=== PATIENT | female | born 2000 | race Caucasian/White ===

== ENCOUNTER → 2020-12-14 | Outpatient (REF) | payer OTHER ==
[2020-12-14 18:03] LABS: HCG, SERUM QUALITATIVE POSITIVE (NEGATIVE)
[2020-12-14 18:14] LABS: HCG, SERUM QUANTITATIVE 56116 MIU/ML
== END ==
LOC: M LAB REF 16:21
PROVIDERS: ATTEND Physician Assistant Medical
DX: Z32.00 Encounter for pregnancy test, result unknown (principal)

== ENCOUNTER 2021-08-05 13:54 | Outpatient (CLI) | payer OTHER ==
[~2021-08-05] VITALS: Ht 165.1 cm; Wt 77.2 kg
[2021-08-05 14:14] VITALS: BP 124/62
[2021-08-05] MEDS ORDERED: ALBU8.5H INH (14:21)
[2021-08-05] MEDS ORDERED: PRENTAB9 PO (14:21)
[2021-08-05] MEDS ORDERED: FERR325T3 PO (14:21)
[2021-08-05] MEDS ORDERED: COLA100C5 PO (14:21)
[2021-08-05] MEDS ORDERED: HOME MED LIST COMPLETE! XX SCH (14:25)
--- NOTE | 2021-08-05 14:51 | IPNPDOC ---
Text Note Date of Service The patient was seen on 08/05/21. NOTE Chief Complaint: Ms. Helton is a 21 year old at 40+1 weeks gestation presenting to L&D triage for complaints of decreased movements. Patient presents: with spouse HPI: Reports usually has excellent movement every morning and night. Loiza some movement last night, but not as vigerous as normal. She did not get her kick counts met this am. Denies any leaking of fluid, vaginal bleeding. Reporting good movement. Some irregular cramping. Denies any headaches, nausea, vomiting, RUQ pain. Denies any dysuria, vaginal discharge, vaginal itching/burning. Objective: General: Alert. Well-appearing, in no acute distress PSYCH: Well groomed. Appropriate affect, normal mood. Conversed easily. Neuro: Oriented to time, place, and person. RESP: Unlabored breathing. CV: NO cyanosis. No edema to bilateral upper and lower extremities. ABD: Soft, non-tender. MSK: legs without edema bilaterally. Normal mvmt all extremities. Steady gait. Kalee from a seated position without assistance. Obstetrical: FHR: 135 with moderate variability, accels noted. NO decels. Irregular contractions. VTX by TAUS Limited Trans-Abdominal Ultrasound Performed Today: Presentation: VTX Placenta location: posterior Movement Present Heart Rate Present Amniotic fluid: Total 24.7cm A/P 21yo at 40+1 wks gestation evaluated in L&D triage for complaints of decreased movement. VSS and normal Benign physical exam Reactive NST, reassuring TAUS showing: Vtx with high end of normal fluid. Discussed with patient this may be why she may not feel baby move, extra fluid can cushion movements. IOL n ot indicated medically at this time. Plan: Educated on routine OB return precautions and warning signs. Follow up in [facility] as previously scheduled (tomorrow). Discussed they will likely schedule IOL tomorrow. She may also ask for sweep, if she desires, at her appointment. VS,Fishbone, I+O VS, Fishbone, I+O Vital Signs Date Time Temp Pulse Resp B/P (MAP) Pulse Ox O2 Delivery O2 Flow Rate FiO2 08/05/21 14:14 97.9 96 16 124/62 (82) SHELDON KUNZ CNM Aug 05, 2021 14:51
== END 2021-08-05 14:59 | disposition home or self-care (01) ==
LOC: M LDO 13:54
PROVIDERS: ATTEND Advanced Practice Midwife
DX: O36.8130 Decreased fetal movements, third trimester, not applicable or unspecified (principal); Z3A.40 40 weeks gestation of pregnancy
CPT/HCPCS: 59025; 76815; G0378; G0463

== ENCOUNTER 2021-08-08 08:35 | Inpatient (IN) | payer OTHER ==
[2021-08-08] VITALS (28 sets, daily range): BP systolic 106–142; BP diastolic 53–87
[~2021-08-08] VITALS: Ht 165.1 cm; Wt 76.8 kg
[~2021-08-08 08:35] MED LIST: ALBU8.5H INH; COLA100C5 PO; FERR325T3 PO; PRENTAB9 PO
[2021-08-08] MEDS ORDERED: VITA250T20 PO (08:55)
[2021-08-08] MEDS ORDERED: CARBOPROST TROMETHAMINE 250 MCG/ML AMP IM PRN (09:30)
[2021-08-08] MEDS ORDERED: METHYLERGONOVINE MALEATE 0.2 MG/ML VIAL (J2210) IM PRN (09:30)
[2021-08-08] MEDS ORDERED: OXYTOCIN DRIP 30 UNITS in IV 1 EA IV PRN ×4 (09:30)
[2021-08-08] MEDS ORDERED: TRANEXAMIC ACID INJection 1,000 MG in NS 100 ML IV PRN (09:30)
[2021-08-08] MEDS ORDERED: LIDOCAINE 1% MDV 20ML VIAL INFIL PRN (09:30)
[2021-08-08 10:41] LABS: HEMATOCRIT 36.1 % (36.0-47.0); HEMOGLOBIN 12.7 g/dl (12.0-15.5); MEAN CORPUSCULAR HEMOGLOBIN 31.8 pg (27.0-33.0); MEAN CORPUSCULAR HGB CONC 35.2 g/dl (32.0-36.5); MEAN CORPUSCULAR VOLUME 90.5 fl (80.0-96.0); PLATELET COUNT, AUTOMATED 257 10^3/uL (150-450); RED BLOOD COUNT 3.99 10^6/uL (4.00-5.40); WHITE BLOOD COUNT 14.6 10^3/uL (4.0-10.0)
[2021-08-08] MEDS: LR 1,000 ML IV SCH ×2 (11:04→15:46)
[2021-08-08] MEDS ORDERED: EPIDURAL COMMENT XX SCH (12:08)
[2021-08-08] MEDS ORDERED: REFRIGERATOR IV KEYS XX PRN (12:08)
[2021-08-08] MEDS ORDERED: ONDANSETRON 4MG/2ML VIAL IV PRN ×2 (12:08→18:15)
[2021-08-08] MEDS ORDERED: ePHEDrine SULFATE 25 MG/5 ML(5MG/ML) SYRINGE IV PRN (12:08)
[2021-08-08] MEDS ORDERED: NALOXONE INJ 0.4MG/1ML VIAL (J2310 PER 1MG) IV PRN (12:08)
[2021-08-08] MEDS ORDERED: EPIDURAL/PCA KEYS XX PRN (12:08)
[2021-08-08] MEDS ORDERED: diphenhydrAMINE 50MG/ML VIAL (J1200) IV PRN (12:08)
[2021-08-08] MEDS ORDERED: LACTATED RINGER'S 1000 ML IV PRN (12:08)
[2021-08-08] MEDS ORDERED: FENTANYL 2MCG/ML ROPIVACAINE 0.2% IN 0.9% NACL 100ML IVBAG As Ordered ONE (12:10)
[2021-08-08] MEDS: FENTANYL/ROPIVACAINE/NACL BAG 100 ML EPIDURAL SCH ×2 (13:14→22:08)
[2021-08-08] MEDS ORDERED: OXYTOCIN DRIP 30 UNITS in IV 1 EA IV SCH ×2 (16:55→18:15)
[2021-08-08] MEDS ORDERED: LR 1,000 ML IV SCH (16:55)
[2021-08-08] MEDS ORDERED: RHOGAM 300 MCG (1500 IU) INJ (J2790) IM SCH (18:15)
[2021-08-08] MEDS ORDERED: IBUPROFEN 600MG TAB PO PRN (18:15)
[2021-08-08] MEDS ORDERED: DOCUSATE SODIUM 100MG CAPSULE PO PRN (18:15)
[2021-08-08] MEDS ORDERED: MEASLES,MUMPS,RUBELLA VACCINE INJ (MMR-II) (90707) SC SCH (18:15)
[2021-08-08] MEDS ORDERED: ACETAMINOPHEN TAB 650MG DOSE (2X325MG) PO PRN (18:15)
[2021-08-08] MEDS ORDERED: ACETAMINOPHEN 500 MG TAB PO PRN (18:15)
[2021-08-08] MEDS ORDERED: DIBUCAINE 1% OINTMENT 30GM TOP PRN (18:15)
[2021-08-09 06:00] VITALS: BP 127/71
[2021-08-09] MEDS: PRENATAL VITAMINS CHEWABLE TABLET PO SCH (07:52)
[2021-08-09] MEDS: IBUPROFEN 800 MG TAB PO PRN ×2 (07:55→18:34)
[2021-08-09 18:00] VITALS: BP 128/79
[2021-08-10 06:00] VITALS: BP 106/63
[2021-08-10] MEDS ORDERED: IBUP80TA PO (08:08)
[2021-08-10] MEDS ORDERED: ACET-683 PO (08:08)
[2021-08-10] MEDS: PRENATAL VITAMINS CHEWABLE TABLET PO SCH (09:28)
== END 2021-08-10 12:30 | disposition home or self-care (01) | DRG 807 ==
LOC: M LDO 08:35 → M LDI 09:28 → M OBS 21:48
PROVIDERS: ADMIT Advanced Practice Midwife; ATTEND Obstetrics & Gynecology
PROC: 10E0XZZ Delivery of Products of Conception, External Approach (ICD-10-PCS; principal; 2021-08-08)
PROC: 0HQ9XZZ Repair Perineum Skin, External Approach (ICD-10-PCS; 2021-08-08)
DX: O48.0 Post-term pregnancy (principal); Z37.0 Single live birth; Z3A.40 40 weeks gestation of pregnancy; O99.02 Anemia complicating childbirth; D64.9 Anemia, unspecified; O69.1XX0 Labor and delivery complicated by cord around neck, with compression, not applicable or unspecified; O70.1 Second degree perineal laceration during delivery

== ENCOUNTER 2021-11-22 19:23 | Emergency (ER) | payer OTHER ==
[~2021-11-22] VITALS: Ht 165.1 cm; Wt 60.8 kg
[~2021-11-22 19:23] MED LIST changes: +ACET-683 PO; +IBUP80TA PO; +VITA250T20 PO
[2021-11-22 19:25] VITALS: BP 113/78
== END 2021-11-22 23:09 | disposition left against medical advice (07) ==
LOC: M ED 19:23
DX: Z53.21 Procedure and treatment not carried out due to patient leaving prior to being seen by health care provider (principal)